=== PATIENT | male | born 1960 | race Caucasian/White ===

== ENCOUNTER → 2023-11-09 | Outpatient (CLI) | payer OTHER ==
--- NOTE | 2023-11-09 11:41 | XR ---
EXAMINATION TYPE: XR knee complete RT DATE OF EXAM: 11/09/2023 COMPARISON: NONE HISTORY: 63-year-old male [id number] Sprain rt knee TECHNIQUE: 3 views FINDINGS: There may be a small to moderate underlying joint effusion. There is a right pulmonary monse ry plasty. Both distal femoral proximal tibial components of the prosthesis appear well seated withou t fracture. Alignment grossly anatomic. Vascular calcifications. Some subtle lucency is suggested at the superior tip of the fibula. IMPRESSION: 1. [id number] knee joint effusion. 2. Subtle lucencies at the superior tip of the fibular head could represent subtle nondisplaced avuls ion fracture. Otherwise, the right total knee arthroplasty appears uncomplicated.
== END | disposition home or self-care (01) ==
LOC: RADXRMAIN 10:31
PROVIDERS: ATTEND Emergency Medicine
DX: M25.461 Effusion, right knee (principal); S83.91XA Sprain of unspecified site of right knee, initial encounter; X58.XXXA Exposure to other specified factors, initial encounter; Z96.651 Presence of right artificial knee joint